=== PATIENT | male | born 1995 | race Caucasian/White ===

== ENCOUNTER 2016-08-31 15:58 | Emergency (ER) | payer OTHER ==
[~2016-08-31] VITALS: Ht 188 cm; Wt 142.7 kg
[2016-08-31 16:01] VITALS: TEMP 36.8; Ht 188 cm; Wt 142.7 kg
[2016-08-31 16:27] VITALS: O2SAT 97
[2016-08-31] MEDS ORDERED: SERT50TA PO (16:37)
[2016-08-31] MEDS ORDERED: IBUP-103 PO (16:37)
--- NOTE | 2016-08-31 16:47 | DIAGNOSTIC IMAGING REPORT ---
SINGLE VIEW CHEST CLINICAL HISTORY: Fever. Sepsis. Atypical chest pain. FINDINGS: An AP, portable, upright chest radiograph is obtained. No prior studies are available for comparison at the time of dictation. The examination is degraded by portable technique, large body habitus, and patient rotation. The cardiomediastinal silhouette is unremarkable. The lungs and pleural spaces are clear. No pneumothorax is seen. The bony thorax is grossly intact. IMPRESSION: No active disease in the chest. Electronically signed by: Josue Boo M.D. 08/31/2016 4:45 PM Dictated Date/Time: 08/31/2016 4:45 PM
[2016-08-31 16:51] LABS: BASO % 0.2 %; BASO ABS # 0.02 K/uL (0-0.2); COMPLETE YES; EOS % 2.3 %; HEMATOCRIT 45.9 % (42-52); IG% 0.4 %; LYMPH % 31.3 %; LYMPH ABS # 3.05 K/uL (1.2-3.4); MEAN CELL VOLUME 83.2 fL (80-100); MEAN CORPUSCULAR HEMOGLOBIN 28.8 pg (25-34); MEAN CORPUSCULAR HGB CONC 34.6 g/dl (32-36); MEAN PLATELET VOLUME 9.7 fL (7.4-10.4); MONO % 5.7 %; NEUT % 60.1 %; PLATELET COUNT 336 K/uL (130-400); RED BLOOD COUNT 5.52 M/uL (4.7-6.1); WHITE BLOOD COUNT 9.75 K/uL (4.8-10.8)
[2016-08-31 17:02] LABS: PROTHROMBIN TIME (PATIENT) 10.8 SECONDS (9.0-12.0)
[2016-08-31 17:12] LABS: ALKALINE PHOSPHATASE 56 U/L (45-117); ALT/SGPT 51 U/L (12-78); AST/SGOT 24 U/L (15-37); BLOOD UREA NITROGEN 16 mg/dl (7-18); BUN/CREATININE RATIO 14.7 (10-20); CALCIUM 9.3 mg/dl (8.5-10.1); CARBON DIOXIDE 26 mmol/L (21-32); CHLORIDE 104 mmol/L (98-107); GLUCOSE 86 mg/dl (70-99); POTASSIUM 3.8 mmol/L (3.5-5.1); SODIUM 139 mmol/L (136-145)
[2016-08-31 17:17] LABS: CKMB/CK RATIO 0.6 (0-3.0)
[2016-08-31] MEDS ORDERED: ONDANSETRON 4MG OD TAB PO STA (17:19)
[2016-08-31] MEDS ORDERED: OPTIRAY 320 IV PRN (17:30)
[2016-08-31 18:09] LABS: URINE APPEARANCE CLEAR (CLEAR); URINE COLOR DK YELLOW; URINE NITRITE NEG (NEG); URINE PH 5.5 (4.5-7.5); URINE SPECIFIC GRAVITY > 1.045 (1.000-1.030); UROBILINOGEN NEG (NEG)
[2016-08-31 18:14] LABS: MANUAL MICROSCOPIC REQUIRED? NO; REVIEW REQ? NO; URINE BILIRUBIN NEG (NEG)
--- NOTE | 2016-08-31 18:38 | DIAGNOSTIC IMAGING REPORT ---
CHEST CTA for PULMONARY ARTERIES CT DOSE: 575.28 mGycm HISTORY: Atypical chest pain. TECHNIQUE: Multiaxial CT images of the chest were performed following the intravenous administration of contrast to evaluate the pulmonary arteries. Maximal intensity projection images were also obtained. COMPARISON STUDY: None. FINDINGS: There is a normal caliber thoracic aorta with no evidence for dissection. Suboptimal visualization of the segmental and subsegmental pulmonary arteries due to the patient's body habitus. Questionable linear filling defect seen within a segmental/subsegmental branch of the right lower lobe on image 139 is likely artifact. Otherwise, no definite filling defects within the pulmonary arteries to suggest pulmonary embolus. Mild thickening of the distal esophagus. Hepatic steatosis. No pleural effusions. No pneumothorax. No mediastinal or hilar lymphadenopathy. The central airways are patent. The lungs are clear. IMPRESSION: 1. No definite evidence for pulmonary embolus with limitations as described above. 2. Mild thickening of the distal esophagus. This could represent an esophagitis. Nonemergent endoscopy can be used for further evaluation. Electronically signed by: Diomedes Montoya M.D. 08/31/2016 6:36 PM Dictated Date/Time: 08/31/2016 6:27 PM
[2016-08-31] MEDS ORDERED: FAMO20TA9 PO (18:41)
--- NOTE | 2016-08-31 18:41 | EMERGENCY ROOM VISIT NOTE ---
History Report prepared by Twin: Janette Sexton Under the Supervision of: Dr. Binh Kerr D.O. First contact with patient: 16:10 Chief Complaint: CHEST PAIN Stated Complaint: CHEST AND JAW PAINS History of Present Illness The patient is a 21 year old male who presents to the Emergency Room with complaints of persistent central chest pain that began six hours ago. He currently rates his discomfort as a 4/10 in severity. The patient states that for the past four years he has had intermittent central chest pain and jaw pain that would last five minutes at a time. He states that he never really had his discomfort evaluated fully. The patient states that on Monday he was sick vomiting, lightheaded, congested, and diaphoresis. He states that Monday morning he went to see his PCP and had several testings done. The patient states that he was diagnosed with depression on Monday, noting that he took his Zoloft today. He additionally notes that his blood pressure is typically all over the place. The patient states that today his chest pain has been persistent since he woke up. 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 The patient denies any smoking or history of cholesterol problems. The patient's father notes that the patient's grandfather had stents placed, noting a history of heart disease. The patient states that he took 2 Advil today without relief of his symptoms. Source of History: patient, spouse/significant other (father) Onset: six hours ago Position: chest (central) Symptom Intensity: 4/10 Timing: other (persistent) Associated Symptoms: + diaphoresis, + vomiting Note: Associated symptoms: recently diagnosed with depression, jaw pain, congestion, lightheaded Review of Systems See HPI for pertinent positives & negatives. A total of 10 systems reviewed and were otherwise negative. Past Medical & Surgical Medical Problems: (1) Depression Family History Heart disease Social History Smoking Status: Never Smoker Marital Status: single Occupation Status: employed Current/Historical Medications Scheduled Ibuprofen Tab (Advil), 400 MG PO PRN UD Sertraline (Zoloft), 50 MG PO DAILY Allergies Coded Allergies: No Known Allergies (Unverified , 08/31/16) Physical Exam Vital Signs Date Time Temp Pulse Resp B/P Pulse Ox O2 Delivery O2 Flow Rate FiO2 08/31/16 17:32 83 20 120/84 99 Room Air 08/31/16 16:27 97 Room Air 08/31/16 16:27 88 15 131/77 97 Room Air 08/31/16 16:22 96 Room Air 08/31/16 16:19 107 08/31/16 16:01 36.8 99 18 162/115 96 Room Air Physical Exam CONSTITUTIONAL/VITAL SIGNS: Reviewed / noted above. GENERAL: Non-toxic in appearance. INTEGUMENTARY: Warm, dry, and [place]. HEAD: Normocephalic. EYES: without scleral icterus or trauma. ENT/OROPHARYNX: clear and moist. LYMPHADENOPATHY/NECK: Is supple without lymphadenopathy or meningismus. RESPIRATORY: Lungs clear and equal. CARDIOVASCULAR: Regular rate and rhythm. GI/ABDOMEN: Soft and nontender. No organomegaly or pulsatile mass. No rebound or guarding. Normal bowel sounds. EXTREMITIES: Warm and well perfused. BACK: No CVA tenderness. NEUROLOGICAL: Intact without focal deficits. PSYCHIATRIC: normal affect. MUSCULOSKELETAL: Normally developed with good muscle tone. Medical Decision & Procedures ER Provider Diagnostic Interpretation: X ray results and stated below per my interpretation and radiology interpretation. SINGLE VIEW CHEST CLINICAL HISTORY: Fever. Sepsis. Atypical chest pain. FINDINGS: An AP, portable, upright chest radiograph is obtained. No prior studies are available for comparison at the time of dictation. The examination is degraded by portable technique, large body habitus, and patient rotation. The cardiomediastinal silhouette is unremarkable. The lungs and pleural spaces are clear. No pneumothorax is seen. The bony thorax is grossly intact. IMPRESSION: No active disease in the chest. Electronically signed by: Josue Boo M.D. 08/31/2016 4:45 PM Dictated Date/Time: 08/31/2016 4:45 PM Laboratory Results 08/31/16 16:25 Red Blood Count 5.52, Mean Corpuscular Volume 83.2, Mean Corpuscular Hemoglobin 28.8, Mean Corpuscular Hemoglobin Concent 34.6, Mean Platelet Volume 9.7, Neutrophils (%) (Auto) 60.1, Lymphocytes (%) (Auto) 31.3, Monocytes (%) (Auto) 5.7, Eosinophils (%) (Auto) 2.3, Basophils (%) (Auto) 0.2, Neutrophils # (Auto) 5.86, Lymphocytes # (Auto) 3.05, Monocytes # (Auto) 0.56, Eosinophils # (Auto) 0.22, Basophils # (Auto) 0.02 08/31/16 16:25 Test 08/31/16 16:25 08/31/16 17:55 White Blood Count 9.75 K/uL (4.8-10.8) Red Blood Count 5.52 M/uL (4.7-6.1) Hemoglobin 15.9 g/dL (14.0-18.0) Hematocrit 45.9 % (42-52) Mean Corpuscular Volume 83.2 fL (80-100) Mean Corpuscular Hemoglobin 28.8 pg (25-34) Mean Corpuscular Hemoglobin Concent 34.6 g/dl (32-36) Platelet Count 336 K/uL (130-400) Mean Platelet Volume 9.7 fL (7.4-10.4) Neutrophils (%) (Auto) 60.1 % Lymphocytes (%) (Auto) 31.3 % Monocytes (%) (Auto) 5.7 % Eosinophils (%) (Auto) 2.3 % Basophils (%) (Auto) 0.2 % Neutrophils # (Auto) 5.86 K/uL (1.4-6.5) Lymphocytes # (Auto) 3.05 K/uL (1.2-3.4) Monocytes # (Auto) 0.56 K/uL (0.11-0.59) Eosinophils # (Auto) 0.22 K/uL (0-0.5) Basophils # (Auto) 0.02 K/uL (0-0.2) RDW Standard Deviation 37.1 fL (36.4-46.3) RDW Coefficient of Variation 12.3 % (11.5-14.5) Immature Granulocyte % (Auto) 0.4 % Immature Granulocyte # (Auto) 0.04 K/uL (0.00-0.02) Prothrombin Time 10.8 SECONDS (9.0-12.0) Prothromb Time International Ratio 1.0 (0.9-1.1) Activated Partial Thromboplast Time 27.1 SECONDS (21.0-31.0) Partial Thromboplastin Ratio 1.0 D-Dimer 740 ug/L FEU (0-500) Anion Gap 9.0 mmol/L (3-11) Est Creatinine Clear Calc Drug Dose 158.6 ml/min Estimated GFR () 109.9 Estimated GFR (Non- 94.8 BUN/Creatinine Ratio 14.7 (10-20) Calcium Level 9.3 mg/dl (8.5-10.1) Total Bilirubin 0.7 mg/dl (0.2-1) Direct Bilirubin 0.1 mg/dl (0-0.2) Aspartate Amino Transf (AST/SGOT) 24 U/L (15-37) Alanine Aminotransferase (ALT/SGPT) 51 U/L (12-78) Alkaline Phosphatase 56 U/L (45-117) Total Creatine Kinase 139 U/L (39-308) Creatine Kinase MB 0.8 ng/ml (0.5-3.6) Creatine Kinase MB Ratio 0.6 (0-3.0) Troponin I < 0.015 ng/ml (0-0.045) Total Protein 8.4 gm/dl (6.4-8.2) Albumin 4.6 gm/dl (3.4-5.0) Lipase 120 U/L (73-393) Urine Color DK YELLOW Urine Appearance CLEAR (CLEAR) Urine pH 5.5 (4.5-7.5) Urine Specific [place] > 1.045 (1.000-1.030) Urine Protein NEG (NEG) Urine Glucose (UA) NEG (NEG) Urine Ketones TRACE (NEG) Urine Occult Blood NEG (NEG) Urine Nitrite NEG (NEG) Urine Bilirubin NEG (NEG) Urine Urobilinogen NEG (NEG) Urine Leukocyte Esterase NEG (NEG) Laboratory results as stated above per my review. Medications Administered Medications (Trade) Dose Ordered Sig/Alec Route Start Time Stop Time Status Last Admin Dose Admin Ondansetron HCl (Zofran Odt) 4 mg NOW STAT PO 08/31/16 17:19 08/31/16 17:20 DC 08/31/16 17:32 4 MG ECG Indication: chest pain Rate (beats per minute): 88 Rhythm: normal sinus Findings: no acute ischemic change, no ectopy ED Course 1611: Previous medical records were reviewed. The patient was evaluated in room A10. A complete history and physical examination was performed. Medical Decision the differential was considered includes acute myocardial infarction, acute coronary syndrome, myocarditis, pericarditis, pericardial effusions /tamponad, esophageal perforation, thoracic aortic dissection, pulmonary embolism, pneumonia, pneumothorax, pancreatitis, shingles, acute cholecystitis, perforated abdominal viscus. This is a 21-year-old male who presents to the ED with a chief complaint of retrosternal chest pain that started around 9 AM today. He states that it seems to be associated with some right-sided jaw pain. The patient states that he has had for about 6 hours. The patient states that he has had similar symptoms for years but normally only last for 5 minutes. He denies any other significant symptoms such as nausea or vomiting, dizziness, lightheadedness, shortness of breath. He states that his blood pressure sometimes is elevated but other times is low. The patient denies any other significant symptoms at this time. His physical exam was unremarkable. Initial blood pressure was 162/ 115. His second blood pressure was normal. EKG shows a normal sinus rhythm. CBC is normal. A chest x-ray did not show any acute disease. Complete metabolic panel was normal. A troponin is negative. Lipase is negative. D- dimer was slightly elevated at 740. A CT scan of the chest did not show a PE or other acute process. There might be some distal esophageal thickening. The patient was told results. He is felt to be stable for discharge. He was given a prescription for Pepcid. Impression Primary Impression: Non-cardiac chest pain Scribe Attestation The scribe's documentation has been prepared under my direction and personally reviewed by me in its entirety. I confirm that the note above accurately reflects all work, treatment, procedures, and medical decision making performed by me. Departure Information Dispostion Home / Self-Care Prescriptions Famotidine (PEPCID) 20 Mg Tab 1 TAB PO BID for 30 Days, #60 TAB 5 Refills Prov: Binh Kerr D.O. 08/31/16 Referrals Chris Art III, M.D. (PCP) Patient Instructions ED Chest Pain NonCardiac, My [facility] Additional Instructions Follow-up with your doctor for further care and evaluation in 1-7 days. Return to the emergency department for worsening or new symptoms or any concerns. You have been examined and treated today on an emergency basis only. This is not a substitute for, or an effort to provide, complete comprehensive medical care. It is impossible to recognize and treat all injuries or illnesses in a single emergency department visit. It is therefore important that you follow up closely with your doctor. Call as soon as possible for an appointment. Take Pepcid twice a day as prescribed.
[2016-08-31 18:45] VITALS: BP 134/86; PULSE 90; O2SAT 96
== END 2016-08-31 18:52 | disposition home or self-care (01) ==
LOC: C.EDB 16:00 → C.EDA 18:52
DX: R07.9 Chest pain, unspecified (principal); F32.9 Major depressive disorder, single episode, unspecified; Z79.899 Other long term (current) drug therapy; Z82.49 Family history of ischemic heart disease and other diseases of the circulatory system